=== PATIENT | female | born 1940 | race Asian ===

== ENCOUNTER 2020-08-27 19:25 | Emergency (ER) | payer OTHER ==
[~2020-08-27] VITALS: Ht 162.6 cm; Wt 56.2 kg
[~2020-08-27 19:25] MED LIST: LOSA50TA39 PO; SIMV-46 PO
--- NOTE | 2020-08-27 22:07 | NUR ---
Patient discharged to home in stable condition. Written and verbal after care instructions given. Patient verbalizes understanding of instructions. Stressed follow up or return to ER for worsening s/s.pt walks in steady gait accompanied by family member.
[2020-08-27 22:08] VITALS: BP 149/61
== END 2020-08-27 22:09 | disposition home or self-care (01) ==
LOC: ER 19:25
DX: I83.811 Varicose veins of right lower extremity with pain (principal); L08.9 Local infection of the skin and subcutaneous tissue, unspecified; I10 Essential (primary) hypertension; E78.00 Pure hypercholesterolemia, unspecified; Z79.899 Other long term (current) drug therapy
CPT/HCPCS: A4663

== ENCOUNTER 2022-05-22 22:27 | Emergency (ER) | payer MEDICARE ==
[~2022-05-22] VITALS: Ht 157.5 cm; Wt 57.6 kg
[2022-05-23 00:29] LABS: *BLOOD, URINE 3+ (NEGATIVE); *KETONES,URINE 1+ (NEGATIVE); LEUKOCYTE ESTERASE ,URINE 3+ (NEGATIVE); NITRITE, URINE POSITIVE (NEGATIVE); PH,URINE 8.5 (5.0-8.0); UGLUCOSE NEGATIVE (NEGATIVE)
[2022-05-23 00:31] LABS: *BILIRUBIN,URIN 3+ (NEGATIVE)
[2022-05-23 00:32] LABS: *CLARITY,URINE BLOODY (CLEAR)
[2022-05-23 00:33] LABS: *COLOR,URINE RED (YELLOW)
--- NOTE | 2022-05-23 00:58 | NUR ---
Patient discharged to home in stable condition. Written and verbal after care instructions given. Patient verbalizes understanding of instructions. Stressed follow up or return to ER for worsening s/s. Patient walked out accompainied by family with steady gait.
[2022-05-23 02:12] VITALS: BP 115/75
[2022-05-23 02:19] LABS: BACTERIA,URINE MANY /HPF (NONE SEEN); RBC,URINE TNTC /HPF (0-3); SQUAMOUS EPITHELIAL CELL,UR MODERATE /HPF (NONE SEEN); WBC,URINE TNTC /HPF (0-3)
== END 2022-05-23 00:59 | disposition home or self-care (01) ==
LOC: ER 22:27
DX: N30.00 Acute cystitis without hematuria (principal); I10 Essential (primary) hypertension; E78.5 Hyperlipidemia, unspecified; Z79.899 Other long term (current) drug therapy
CPT/HCPCS: A4663